=== PATIENT | male | born 1980 | race African-American/Black ===

== ENCOUNTER 2020-05-29 13:46 | Outpatient (CLI) | payer OTHER ==
[2020-05-29] MEDS ORDERED: BUFFERED LIDOCAINE 10 ML SYRINGE ONE (13:59)
[2020-05-29] MEDS ORDERED: GADOBUTROL 7.5 MMOL/7.5 ML VIAL ONE (13:59)
[2020-05-29] MEDS ORDERED: BUFFERED LIDOCAINE 10 ML SYRINGE IU ONE (15:46)
[2020-05-29] MEDS ORDERED: iohexoL-240 10 ML VIAL IVP ONE (15:47)
--- NOTE | 2020-05-29 17:10 | XRAY Report ---
PROCEDURE: Arthrogram Needle Placement INDICATIONS: LT KNEE MENISCUS TEAR CONTRAST: CONTRAST: omnipaque FLUORO TIME: FLUORO TIME: 0.11 and NUMBER IMAGES: 2 TECHNIQUE: The indications, alternatives, benefits, risks, and complications of the procedure were explained to the patient. Written informed consent was obtained and placed in the chart. The knee was examined f luoroscopically, and a site chosen for knee joint injection. The skin was prepped and draped in the usual fashion and 1% Lidocaine infiltrated from the skin down to the articular surface. A hypodermic needle was then introduced into the joint and iodinated contrast media was instilled to confirm the intra-articular needle tip placement. This was followed by approximately 50 mL dilute solution of a Isovue contrast. The needle was removed and a bandage was applied. An Jose David wrap was then applied candy und the knee joint to keep the contrast from collecting in the suprapatellar recess. The patient experienced no complications throughout the procedure and left the fluoroscopic suite in no apparent distress. FINDINGS: Single fluoroscopic spot image demonstrates intra-articular location to injected Isovue contrast. IMPRESSION: Secondary to Isovue injection, felt to limit evaluation on MRI, patient will return for gadolinium in jection. Reviewed by: Shante Ugarte MD on 05/29/2020 5:08 PM PDT Approved by: Shante Ugarte MD on 05/29/2020 5:08 PM PDT Station ID: [id number]
== END 2020-05-29 13:47 | disposition home or self-care (01) ==
LOC: DI 13:46
PROVIDERS: ATTEND General Practice
DX: S83.207A Unspecified tear of unspecified meniscus, current injury, left knee, initial encounter (principal)
CPT/HCPCS: 77002

== ENCOUNTER 2020-05-30 14:06 | Outpatient (CLI) | payer OTHER ==
[2020-05-30] MEDS ORDERED: GADOBUTROL 7.5 MMOL/7.5 ML VIAL ONE (14:19)
[2020-05-30] MEDS ORDERED: BUFFERED LIDOCAINE 10 ML SYRINGE ONE (14:19)
[2020-05-30] MEDS ORDERED: GADOBUTROL 7.5 MMOL/7.5 ML VIAL IVP ONE (15:29)
[2020-05-30] MEDS ORDERED: iohexoL-240 10 ML VIAL IVP ONE (15:30)
[2020-05-30] MEDS ORDERED: BUFFERED LIDOCAINE 10 ML SYRINGE IU ONE (15:32)
--- NOTE | 2020-05-30 18:04 | XRAY Report ---
PROCEDURE: Arthrogram Needle Placement INDICATIONS: LT KNEE MENISCUS TEAR CONTRAST: CONTRAST: omnipaque/gada FLUORO TIME: FLUORO TIME: 0.27 min and NUMBER IMAGES: 2 TECHNIQUE: The indications, alternatives, benefits, risks, and complications of the procedure were explained to the patient. Written informed consent was obtained and placed in the chart. The knee was examined f luoroscopically, and a site chosen for knee joint injection. The skin was prepped and draped in the usual fashion and 1% Lidocaine infiltrated from the skin down to the articular surface. A hypodermic needle was then introduced into the joint and iodinated contrast media was instilled to confirm the intra-articular needle tip placement. This was followed by approximately 50 mL dilute solution of a gadolinium containing MR contrast agent. The needle was removed and a bandage was applied. An Jose David w rap was then applied around the knee joint to keep the contrast from collecting in the suprapatellar recess. The patient experienced no immediate complications throughout the procedure and left the fluoroscopic suite in no apparent distress. FINDINGS: Single fluoroscopic spot image demonstrates intra-articular location to injected iodinated contrast. IMPRESSION: Successful fluoroscopically guided administration of dilute Gadolinium solution into the knee joint f or MR arthrogram. Reviewed by: Heraclio Wolf MD on 05/30/2020 6:02 PM PDT Approved by: Heraclio Wolf MD on 05/30/2020 6:02 PM PDT Station ID: [id number]
--- NOTE | 2020-05-31 09:22 | MRI Report ---
PROCEDURE: Arthrogram Knee LT INDICATIONS: LT KNEE MENISCUS TEAR CONTRAST: Dilute intra-articular gadolinium contrast TECHNIQUE: After the administration of 50 mL of dilute intra-articular Gadolinium contrast, sagittal T1 spin ech o with fat saturation and PD fast spin echo with fat saturation, coronal T1 spin echo with and withou t fat saturation, coronal T2 fast spin echo with fat saturation, axial PD fast spin echo with fat sat uration through the knee. COMPARISON: Fluoroscopic images from arthrogram injection performed earlier the same day. FINDINGS: Image quality: Diagnostic. Menisci: There is a horizontal oblique tear of the posterior horn of the medial meniscus extending t o the middle third of the femoral articular surface. There is also mild free edge fibrillation in the medial meniscal body. There is vertical longitudinal tearing of the anterior horn of the lateral meniscus (image 10 of seri es 401). A hypointense structure adjacent to the anterior root attachment of the lateral meniscus baldemar suring 6 mm (image 16 of series 401) is suspicious for a mildly displaced meniscal flap fragment vers us focal synovial hypertrophy or less likely a loose body. The meniscal body is extruded beyond the f emorotibial joint line with intrasubstance degeneration. Cruciate ligaments: The anterior and posterior cruciate ligaments appear intact. Medial structures: The medial collateral ligament appears intact. The semimembranosus tendon insert ions appear intact. Visualized portions of the pes anserinus tendons appear normal. Lateral structures: The lateral collateral ligament, long and short heads of the biceps femoris tend on appear intact. The popliteus tendon appears intact. Iliotibial band appears normal. Anterior structures: The quadriceps and patellar tendons appear intact. Patellar alignment is stephon l. No femoral trochlear dysplasia or ventral trochlear prominence. No edema in the infrapatellar fa t pad. Bones and cartilage: No bone marrow contusion or acute fracture. There is focal at least high-grade partial thickness cartilage loss in the central weightbearing portion of the medial femoral condyle measuring 7 x 4 mm. Additional probable full-thickness cartilage loss is seen in the posterior to far posterior weightbearing portion of the lateral femoral condyle with mild subchondral edema. Full-thi ckness cartilage loss is seen in the lateral tibial plateau with mild subchondral edema. There is hig h-grade cartilage loss in the adjacent portion of the lateral femoral condyle. High-grade cartilage l oss is seen in the lateral patellar facet and there is deep cartilage fissuring in the median ridge/l ateral facet of the patella as well as in the medial facet. Tricompartmental marginal osteophytes are present. Joint space and soft tissues: No definite intra-articular loose body is seen. There is no significan t Serrano's cyst. A small amount of nonspecific prepatellar edema is present. IMPRESSION: 1. Horizontal oblique tearing of the posterior horn of the medial meniscus extending to the middle t hird of the femoral articular surface. 2. Focal vertical longitudinal tearing of the anterior horn of the lateral meniscus with a possible displaced flap fragment adjacent to the anterior root attachment. There is extrusion of the lateral m eniscal body with intrasubstance degeneration. 3. 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 Tricompartmen hilaria marginal osteophytes are present. Reviewed by: Riley Cox MD on 05/31/2020 9:20 AM PDT Approved by: Riley Cox MD on 05/31/2020 9:20 AM PDT Station ID: [id number]
== END 2020-05-30 14:07 | disposition home or self-care (01) ==
LOC: DI 14:06
PROVIDERS: ATTEND General Practice
DX: S83.242A Other tear of medial meniscus, current injury, left knee, initial encounter (principal); S83.282A Other tear of lateral meniscus, current injury, left knee, initial encounter; M17.12 Unilateral primary osteoarthritis, left knee; M25.762 Osteophyte, left knee; M94.262 Chondromalacia, left knee
CPT/HCPCS: 27369; 73722; 77002; A9585; Q9966

== ENCOUNTER 2021-01-23 08:00 | Outpatient (CLI) | payer OTHER ==
--- NOTE | 2021-01-23 14:05 | XRAY Report ---
PROCEDURE: Knee 4 View LT INDICATIONS: L KNEE PX TECHNIQUE: 4 views of the left knee(s) were acquired. COMPARISON: X-ray knee 05/03/2020 FINDINGS: Bones: No fractures or dislocations. No suspicious bony lesions. There is moderate medial, lateral and patellofemoral compartment narrowing. Periarticular osteophytes are present. No erosions. Soft tissues: Mild to moderate joint effusion. No suspicious soft tissue calcifications. IMPRESSION: Moderate tricompartmental arthritic change. Reviewed by: Shante Ugarte MD on 01/23/2021 2:04 PM PDT Approved by: Shante Ugarte MD on 01/23/2021 2:04 PM PDT Station ID: [id number]
== END 2021-01-23 23:59 | disposition home or self-care (01) ==
LOC: DI.N 08:00
PROVIDERS: ATTEND Physician Assistant
DX: M25.562 Pain in left knee (principal); M17.12 Unilateral primary osteoarthritis, left knee

== ENCOUNTER 2024-01-08 20:11 | Emergency (ER) | payer OTHER ==
[2024-01-08 20:26] VITALS: BP 127/51; O2SAT 100
--- NOTE | 2024-01-08 21:41 | ED Physician Documentation ---
ED Addendum - Addendum Addendum: 01/08/24 21:40 Patient left before I saw him therefore no note was completed. LWBS.
== END 2024-01-08 21:30 | disposition left against medical advice (07) ==
LOC: ED 20:11
DX: Z53.21 Procedure and treatment not carried out due to patient leaving prior to being seen by health care provider (principal)